=== PATIENT | male | born 1980 | race Caucasian/White ===

== ENCOUNTER 2019-03-19 03:32 | Observation (INO) | payer SELFPAY ==
[2019-03-19] MEDS ORDERED: PROCHLORPERAZINE INJ 5 MG/ML 2 ML VIAL IV ONE (03:42)
[2019-03-19] MEDS ORDERED: NS 0.9% 1000 ML** 2,000 ML IV ONE (03:42)
--- NOTE | 2019-03-19 03:44 | ED ---
Syncope/Near Syncope - HPI Summary HPI Summary: This patient is a 38 year old M brought to ED via EMS with a chief complaint of dizziness after waking up at 0200 this morning. Patient felt alright going to bed on 03/18/19 at midnight. Upon waking up, patient felt spinning in bed. He lay there hoping the dizziness would go away. He felt like he needed to defecate. Patient crawled on all fours to the bathroom as he felt like he was going to lose consciousness or fall, where he had diarrhea and vomiting. EMS gave 4 Zofran. The patient rates the pain 0/10 in severity. Symptoms aggravated by nothing. Symptoms alleviated by nothing. PMHx of HTN, anxiety. - History Of Current Complaint Chief Complaint: EDSyncope Time Seen by Provider: 03/19/19 03:35 Hx Obtained From: Patient, EMS Onset/Duration: Sudden Onset - 0200 this morning, Still Present Timing: Constant Context: Unwitnessed Activity At Onset: At Rest Associated Head Trauma: No Aggravating Factor(s): Nothing Alleviating Factor(s): Nothing Associated Signs And Symptoms: Diarrhea, Dizzy, Vomiting - Allergies/Home Medications Allergies/Adverse Reactions: Allergies Allergy/AdvReac Type Severity Reaction Status Date / Time No Known Allergies Allergy Verified 03/19/19 03:44 Home Medications: Home Medications Escitalopram * [Lexapro 10 mg (NF)] 10 mg PO DAILY 03/19/19 [History Confirmed 03/19/19] amLODIPine TAB* [Norvasc 5 mg TAB*] 1 tab PO DAILY 03/19/19 [History Confirmed 03/19/19] busPIRone TAB* [Buspar TAB *] 15 mg PO TID 03/19/19 [History Confirmed 03/19/19] PMH/Surg Hx/FS Hx/Imm Hx Cardiovascular History: Reports: Hx Hypertension Psychiatric History: Reports: Hx Anxiety Infectious Disease History: No Infectious Disease History: Denies: Traveled Outside the [place] in Last 30 Days - Family History Known Family History: Positive: Non-Contributory - Social History Alcohol Use: None Hx Substance Use: No Substance Use Type: Reports: None Hx Tobacco Use: No Smoking Status (MU): Never Smoked Tobacco Review of Systems Positive: Vomiting, Diarrhea, Nausea Neurological: Other - Dizziness, near-syncope All Other Systems Reviewed And Are Negative: Yes Physical Exam - Summary Physical Exam Summary: Appearance:Well-appearing, Well-nourished, lying in bed comfortable Skin:Warm, dry, no obvious rash Eyes:sclera anicteric, no conjunctival pallor ENT:mucous membranes moist Neck:supple Respiratory:No signs of respiratory distress Cardiovascular:Appears well perfused, pulses are nml Abdomen:soft, nontender, normal active bowel sounds present Musculoskeletal:Moving all 4 extremities without obvious discomfort Neurological:nystagmus on rightward gaze, otherwise nonfocal. No ataxia on finger to nose testing. Psychiatric:affect is normal, does not appear anxious or depressed Triage Information Reviewed: Yes Vital Signs On Initial Exam: Initial Vitals Temp Pulse Resp BP Pulse Ox 96.5 F 62 18 122/79 98 03/19/19 03:35 03/19/19 03:35 03/19/19 03:35 03/19/19 03:35 03/19/19 03:35 Vital Signs Reviewed: Yes Diagnostics - Vital Signs Vital Signs Temp Pulse Resp BP Pulse Ox 03/19/19 03:35 96.5 F 62 18 122/79 98 - Laboratory Result Diagrams: 03/19/19 07:52 03/19/19 07:52 Lab Statement: Any lab studies that have been ordered have been reviewed, and results considered in the medical decision making process. Re-Evaluation - Re-Evaluation First Eval Re-Evaluation Time: 06:05 Change: Unchanged Comment: Patient reports still feeling dizzy. Course/Dx Course Of Treatment: This patient is a 38 year old M brought to ED via EMS with a chief complaint of near-syncope after being woken up at 0200 this morning. In the ED course, patient received fluids, Compazine, and Antivert. This patient will be signed out from Dr. Noé Saucedo to Dr. Moses Benton at shift change at 0700 on 03/19/19 pending disposition. - Diagnoses Provider Diagnoses: Vertigo Discharge - Sign-Out/Discharge Documenting (check all that apply): Sign-Out Patient Signing out patient TO: Moses Benton Receiving patient FROM: Noé Saucedo Patient Received Moderate/Deep Sedation with Procedure: No - Discharge Plan Condition: Stable Disposition: ADMITTED TO [facility] - Billing Disposition and Condition Condition: STABLE Disposition: Admitted to [facility] - Attestation Statements Document Initiated by Scribe: Yes Documenting Scribe: Colby Pagan Provider For Whom Scribe is Documenting (Include Credential): Noé Sacuedo MD Scribe Attestation: I, Colby Pagan, scribed for Noé Saucedo MD on 03/20/19 at 0309. Scribe Documentation Reviewed: Yes Provider Attestation: The documentation as recorded by the scribe, Colby Pagan accurately reflects the service I personally performed and the decisions made by me, Noé Saucedo MD Status of Scribe Document: Viewed
[2019-03-19] MEDS ORDERED: Meclizine TAB* 12.5 MG PO ONE (06:07)
[2019-03-19 08:03] LABS: Urine Appearance Clear; Urine Bilirubin Negative (Negative); Urine Blood Negative (Negative); Urine Color Yellow; Urine Glucose Negative (Negative); Urine Ketones Negative (Negative); Urine Nitrite Negative (Negative); Urine Protein Negative (Negative); Urine Specific Gravity 1.019 (1.010-1.030); Urine Urobilinogen Negative (Negative)
[2019-03-19 08:06] LABS: ABS Eosinophils 0.1 10^3/ul (0-0.6); ABS Lymphocytes 1.5 10^3/ul (1.0-4.8); ABS Monocytes 0.5 10^3/ul (0-0.8); ABS Neutrophils 7.6 10^3/ul (1.5-7.7); Eosinophil % 0.6 %; Hematocrit 36 % (42-52); Hemoglobin 12.1 g/dL (14.0-18.0); Lymphocyte % 15.8 %; Mean Corpuscular HGB Conc 34 g/dL (31-36); Mean Corpuscular Hemoglobin 31 pg (27-31); Mean Corpuscular Volume 90 fL (80-94); Mean Platelet Volume 8.1 fL (7.4-10.4); Platelet Count 184 10^3/uL (150-450); Red Blood Count 3.94 10^6 /uL (4.18-5.48); Red Cell Distribution Width 14 % (10.5-15); White Blood Count 9.6 10^3/uL (3.5-10.8)
[2019-03-19 08:24] LABS: Albumin 3.7 g/dL (3.2-5.2); Albumin/Globulin Ratio 1.9 (1-3); BUN/Creatinine Ratio 26.5 (8-20); Calcium 8.4 mg/dL (8.6-10.3); EGFR African American 156.3 (>60); EGFR Non-African American 129.2 (>60); Magnesium 1.8 mg/dL (1.9-2.7); Potassium 4.1 mmol/L (3.5-5.0); Total Bilirubin 0.3 mg/dL (0.2-1.0); Total Protein 5.7 g/dL (6.4-8.9)
[2019-03-19] MEDS ORDERED: Diazepam TAB(*) 5 MG PO ONE (08:34)
--- NOTE | 2019-03-19 08:37 | ED ---
Progress - Progress Note Progress Note: Patient is signed out from Dr. Saucedo at 0700 awaiting final disposition. All imaging reviewed by ED physician. - EKG/XRAY/CT Comments: [0825] Sinus bradycardia at 50 BPM, Q wave in lead III, no ST elevations Xray Comments: CXR: No radiographic evidence of acute cardiopulmonary disease. CT: Brain CT: Normal CT of the Brain Re-Evaluation - Re-Evaluation First Eval Re-Evaluation Time: 09:00 Change: Unchanged Comment: Patient reports still feeling dizzy and the room is spinning. Second Eval Re-Evaluation Time: 09:57 Change: Unchanged Comment: Patient is still dizzy Course/Dx - Course Course Of Treatment: This patient was signed out from Dr. Merino stating that the patient has vertigo. The patient was given Compazine and meclizine. He requested to be assessed the patient and likely discharge the patient home. I reassessed the patient however the symptoms have not improved. Therefore I ordered blood work for him which shows an slight anemia, chloride 113, glucose 119, calcium 8.4 magnesium 1.8 and total protein 5.8. Chest x-ray impression: No acute pathology. Head CT impression: No acute interconnected pathology. Patient was given Valium however the symptoms do not improve. Therefore, I discussed my physical exam and findings with Dr. Garibay from the hospitalist services who accepted the patient for admission. - Diagnoses Provider Diagnoses: Vertigo - Provider Notifications Discussed Care Of Patient With: Zuleika Cifuentes - hospitalist Time Discussed With Above Provider: 09:57 Instructed by Provider To: Admit As Inpatient Discharge - Sign-Out/Discharge Documenting (check all that apply): Patient Departure - admit Patient Received Moderate/Deep Sedation with Procedure: No - Discharge Plan Condition: Stable Disposition: ADMITTED TO [facility] - Billing Disposition and Condition Condition: STABLE Disposition: Admitted to [facility] - Attestation Statements Document Initiated by Mamiibe: Yes Documenting Scribe: Bernadine Jacobson Provider For Whom Katty is Documenting (Include Credential): Moses Benton MD Scribe Attestation: Bernadine Don scribed for Moses Benton MD on 03/19/19 at 1852. Scribe Documentation Reviewed: Yes Provider Attestation: The documentation as recorded by the Bernadine lindquist accurately reflects the service I personally performed and the decisions made by me, Moses Benton MD Status of Katty Document: Viewed
[2019-03-19 09:12] LABS: TSH (Thyroid Stimulating Horm) 1.86 mcIU/mL (0.34-5.60)
[2019-03-19] MEDS ORDERED: NS 0.9% 1000 ML** 1,000 ML IV ONE (12:19)
[2019-03-19] MEDS ORDERED: Ondansetron INJ* 2 MG/ML VIAL IV PRN (13:45)
[2019-03-19] MEDS ORDERED: Magnesium Sulfate 1 GM IV* 1 GM/100 ML BAG IV ONE (13:53)
[2019-03-19] MEDS ORDERED: Meclizine TAB* 12.5 MG PO PRN (13:53)
[2019-03-19] MEDS ORDERED: Diazepam TAB(*) 5 MG PO PRN (13:54)
[2019-03-19] MEDS ORDERED: Aspirin 81 mg CHEW TAB* 81 MG TAB.CHEW PO ONE (13:58)
[2019-03-19] MEDS: busPIRone TAB* 15 MG PO SCH ×2 (14:03→21:11)
[2019-03-19] MEDS: NS 0.9% 1000 ML** 1,000 ML IV SCH ×2 (14:10→23:44)
--- NOTE | 2019-03-19 16:26 | CONS ---
CONSULTATION REPORT: DATE OF CONSULT: 03/19/19 CURRENT LOCATION: ER, bed 15. PRIMARY CARE PROVIDER: He has no primary care provider. REASON FOR CONSULT: Dizziness. HISTORY OF PRESENT ILLNESS: Mr. Diallo is a very nice 38-year-old gentleman, who has a history of some hypertension, on medication; history of depression/ anxiety, recently switched from Zoloft to Lexapro several weeks ago with no problems at that time, presented today with acute onset of dizziness early this morning. He apparently was in his usual state of health. Last night, he went to bed around midnight. He states he woke up in the middle of the night and he felt like he was going to have diarrhea. He was also very dizzy. He crawled into the bathroom and had diarrhea. Subsequently, he felt very warm and diaphoretic and felt very dizzy. He states that the room was spinning, he did not know which direction. He also at times felt lightheaded, very diaphoretic and his heart rate was fast. He felt like he was going to pass out several times and finally he states he vomited a large amount. Interestingly, he also notes that he has had some recent dark red blood in his stools. He has had a history of ulcers in the past. The dark red blood has been ongoing for about 3 weeks and he has not sought help for that at this time. The dizziness did not improve and he finally decided to come to the ER. In the ER, he has had persistent dizziness despite the fact that he has received Valium, meclizine, and Compazine. Currently, he notes that the room feels it is spinning, although he is unclear which direction. He feels nauseated, but he does not feel like he is going to vomit at this time. He notes no ringing in his ears. He has had some bronchitis in the recent past, but no acute infections, no sinus infections, no ear infections or ringing in his ears. No vision changes, vision loss, focal numbness, tingling or weakness. Up until this morning, he had no problems with balance, walking, numbness, tingling, or weakness. He has been in his usual state of health otherwise. He had the similar episode in the past, was treated with an Axel. It is unclear if it helped in the past. He has otherwise had no episodes of vertigo in the past. I did the Axel maneuver on him several times and there was some improvement of his nystagmus to the right. He states that he was about 20% better, but he continued to feel very dizzy, nauseated, was unable to stand safely. Based on that, he is being admitted to the hospital for observation. PAST MEDICAL HISTORY: As noted above. MEDICATIONS: At home, he takes: 1. Lexapro 10 mg daily. 2. Amlodipine 5 mg daily. 3. Buspirone 15 mg p.o. t.i.d. He has been on these medications for some time with no side effects. ALLERGIES: No known drug allergies. FAMILY HISTORY: Significant for strokes. Recently lost his mom and dad. SOCIAL HISTORY: He denies tobacco, alcohol, or drug use now or in the past. He works as a supervising chef. REVIEW OF SYSTEMS: Review of systems in 14-organ systems as noted above, otherwise negative. PHYSICAL EXAM: Blood pressures have been stable 114/61 to 114/60 to 121/70, pulse has been in the 48 to 60 range, respiratory rate 10 to 20, O2 sats 95% to 96% on room air. In general, he is a well-nourished, well-developed gentleman, in no acute distress. He is sitting in his hospital [facility] with head at approximately 45 degrees. He is pleasant, although he is somewhat uncomfortable. HEENT: He is normocephalic, atraumatic. Sclerae are anicteric. Mucous membranes are moist. Oropharynx is clear. Nares are patent. Neck is supple. No thyromegaly. No carotid bruits. No meningismus. Chest: Clear to auscultation bilaterally. Cardiovascular is regular rate and rhythm without murmurs, gallops, or rubs. Abdomen: Obese, nontender. Extremities: No clubbing, cyanosis, or edema. His skin is warm and dry without lesions. On neurologic exam, he is awake, alert, and oriented x3. His speech is fluent. There is no dysarthria. Repetition is intact. Recall of recent and remote events is intact. Vocabulary is intact. His mood is dysthymic. Affect, mood congruent. Cranial Nerves: Pupils are equally round and reactive to light and accommodation. Extraocular muscles are intact in all lafleur without diplopia or ptosis. He does have right lateral gaze nystagmus sustained and no left gaze nystagmus. No rotatory nystagmus. No upward gaze nystagmus. His facial sensation is intact bilaterally. Face is symmetric. Hearing is intact bilaterally. Palate raises symmetrically. Tongue is midline. Motor exam is 5/ 5 throughout. No drift. Tone and bulk are both normal. Sensation is intact to light touch and pinprick throughout. No focal abnormalities. DTRs are 1+ and symmetric in the upper extremities, 2+ at the patella, absent at the ankles , equivocal Babinski's. [id number] and rapid alternating movements are intact without tremors, without dysdiadochokinesia or dysmetria. Gait: I did not test and he feels unsteady. DIAGNOSTIC STUDIES/LAB DATA: He had lab work done. His complete metabolic profile with a chloride of 113, glucose of 119, calcium of 8.4, magnesium of 1.8. Total protein of 5.7. TSH is 1.86. Hemoglobin of 12.1, hematocrit of 36 , RBC of 3.94, otherwise CBC with diff is normal. Urine is negative. He had a CT scan done that was normal. He had a chest x-ray done, which showed no acute cardiopulmonary disease. He had an electrocardiogram done, which showed some sinus bradycardia, less than 60. ASSESSMENT AND PLAN: Mr. Diallo is a 38-year-old gentleman with a history of hypertension, on medication with good control; history of depression and anxiety , previously on Zoloft, but switched to Lexapro about 3 weeks ago without any difficulties. He takes buspirone as well. He has been in his usual state of health when early this morning he woke up and he was acutely dizzy with the room spinning, had diarrhea x1 and also vomited x1. Currently, he feels very nauseated. He is having continued room spinning with nystagmus to the right. There are no recent ear infections or upper respiratory infections. He did have bronchitis several weeks ago with an uncomplicated course. No chest pains or palpitations. No focal numbness, tingling or weakness, facial droop, vision changes. He has otherwise been in his usual state of health. I did perform the Axel maneuver several times and he did have some improvement in his symptoms with reduced nystagmus and about 20% improvement of his dizziness. With that said, he remains very dizzy and unable to ambulate safely. The plan is to admit him and hydrate him. I would treat him only for severe symptoms. Try to avoid meclizine or benzodiazepines as this can prolong illness, but if he is acutely vomiting, I could treat with some benzodiazepine or Zofran. If he is no better in the morning, our plan will be to get an MRI of his brain to look for any evidence of secondary causes including demyelinating disease, although my suspicion given his presentation is extremely low. We will continue to monitor him overnight and make further assessments and recommendations in the morning. Thank you for the opportunity to participate in the care of this very interesting patient. [id number]/[facility] #: [id number] [facility]
--- NOTE | 2019-03-19 18:04 | HP ---
CC: Dr. LancasterGassaway, [place] * HISTORY AND PHYSICAL: DATE OF ADMISSION: 03/19/19 PROVIDER: Erika Boothe NP ATTENDING PHYSICIAN WHILE IN THE HOSPITAL: Dr. Elaine Styles * (dictated by Erika Boothe NP). CHIEF COMPLAINT: Dizziness. HISTORY OF PRESENT ILLNESS: Mr. Diallo is a 38-year-old male with a past medical history significant for hypertension, anxiety and depression, who presented to the emergency room with complaints of dizziness. The patient reports that he woke at approximately 2 a.m. with dizziness. He states that when he got up he felt off balance and was having a hard time focusing due to the dizziness. He reports that he went to bed at approximately 12 a.m. and at that time he felt fine. He denies any recent illnesses. Denies any head or nasal congestion. He does report some mild allergy symptoms. He denies any recent alcohol use. He does report that the dizziness is worse with movement and turning his head [id number]. He also reports that it is worse when his eyes are open. He reports that he had a tiny improvement of the dizziness after the Axel maneuver that was performed by Dr. López, but still remains significantly dizzy. He denies any recent fevers, chills, unintended weight loss. Denies any chest pain or edema, cough, hemoptysis or shortness of breath. He does report nausea and vomiting and an episode of diarrhea associated with the dizziness. He denies any abdominal pain, gross hematuria, dysuria, focal weakness, or sensory loss. He denies any visual complaints, arthralgias, myalgias, rashes, lesions, or open sores. Denies any psychosis or anxiety. While in the emergency room, the patient had routine lab work drawn. He had a CT of the head. He was seen by Neurology, Dr. López, who did the Axel maneuver , but the patient remains dizzy. Due to these symptoms, we were asked to see and evaluate the patient for admission. PAST MEDICAL HISTORY: Significant for hypertension, anxiety, and depression. PAST SURGICAL HISTORY: Right knee surgery. HOME MEDICATIONS: 1. BuSpar 15 mg p.o. t.i.d. 2. Norvasc 5 mg p.o. daily. 3. Lexapro 10 mg p.o. daily. ALLERGIES: No known drug allergies. FAMILY HISTORY: Mother with a history of hypertension and stroke in her 50s with residual weakness. Mother with diabetes. Father with diabetes. No reported history of cancer. SOCIAL HISTORY: The patient denies any tobacco, alcohol, or illicit drug use. He is . Surrogate decision maker in the event he is unable to make his own decisions is his sister, Lina. He is a full code. REVIEW OF SYSTEMS: An 11-point review of systems was completed. All pertinent positives were mentioned in the HPI, otherwise were negative. PHYSICAL EXAMINATION GENERAL: At this time, Mr. Diallo is a 38-year-old male. He is alert and oriented, resting on the stretcher in the emergency room. VITAL SIGNS: Blood pressure 111/73, heart rate 72, respirations 17, O2 saturation 98%, temperature was 96.5. HEENT: Head is atraumatic, normocephalic. Eyes: EOMs are intact. Sclerae anicteric and not pale. He does have nystagmus. Pupils are equal and reactive. Oral mucosa appeared to be moist. NECK: Supple. LUNGS: Clear to auscultation bilaterally. No wheezes, rales, or rhonchi. CARDIAC: S1, S2. Regular rate and rhythm. He is bradycardic. ABDOMEN: Soft and nontender. Bowel sounds are present x4. EXTREMITIES: He is able to move all 4 extremities with 5/5 strength. There is no clubbing or cyanosis. Pedal pulses are +2 bilaterally. NEUROLOGIC: He is awake, alert, oriented x3. He does have positive nystagmus centrally and with lateral movement of his eyes. Speech is clear. Thought process is intact. There are no gross focal deficits. SKIN: Intact. DIAGNOSTIC STUDIES/LAB DATA: WBCs are 9.6, RBCs 3.94, hemoglobin 12.1, hematocrit 36, platelet count 184. Sodium 142, potassium 4.1, chloride 113, carbon dioxide was 23, anion gap was 6, BUN was 18, creatinine 0.68, glucose was 119, lactic acid was 1.2, calcium 8.4, magnesium was 1.8. ASTs were 22, ALTs were 26, alkaline phosphatase was 44. Troponin was 0.00 and TSH was 1.86. Urine was within normal limits. He had CT of the brain, radiologist's impression: Normal CT of the brain. He had a chest x-ray, radiologist's impression: No evidence of cardiopulmonary disease. He had an electrocardiogram, which showed sinus bradycardia at a rate of 50. He does have T-wave inversions in V1. He has P-wave inversion in aVR and V1. ASSESSMENT AND PLAN: Mr. Diallo is a 38-year-old male, who presented to the emergency room with complaints of dizziness since 2 a.m. He will be admitted under observation for: 1. Dizziness. I suspect this is related to benign positional vertigo. The patient was seen by Dr. López López in the emergency room. The patient had an Axel maneuver in the emergency room by Neurology and had minimal improvement of his dizziness. The patient continues to have nystagmus. I will continue IV fluids as per Neurology's recommendations. He will be placed on the monitor. I will get neuro checks every 4 hours. I will give him aspirin 324 mg. I will get a lipid profile and A1c in the a.m. and repeat BMP. I will also order meclizine and Valium as needed for severe dizziness. Neurology has recommended that if the patient's symptoms do not improve by tomorrow morning, to obtain MRI of the brain. He will be monitored on telemetry overnight. Should the MRI of the brain show any abnormality or infarct, we will complete a cerebrovascular accident workup with a CTA of the head and neck and a transthoracic echocardiogram with bubble study. At this time, his symptoms appeared to be clearly related to benign positional vertigo. 2. Hypertension. The patient has a history of hypertension. I am going to hold his amlodipine at this time as the patient's blood pressure systolically is in the one teens. We will resume this when able. 3. Anxiety and depression. I will continue his BuSpar and Lexapro as previously prescribed. 4. FEN: He can have a regular diet. 5. Code status: He is a full code. 6. DVT prophylaxis: I will place him on SCDs, as on DVT risk stratification he scores a 1. TIME SPENT: Time spent on this admission was approximately 60 minutes, greater than half that time was spent at the bedside reviewing events leading thus far to his hospitalization, performing physical exam, and reviewing my plan of care. I have discussed this with my attending, Dr. Elaine Styles; she is in agreement with my plan. ERIKA BOOTHE, LIGHT TRUCK DRIVER [id number]/[facility] #: [id number] [facility] HOSPITALJose
[2019-03-20 06:56] LABS: ABS Eosinophils 0.1 10^3/ul (0-0.6); ABS Lymphocytes 2.7 10^3/ul (1.0-4.8); ABS Monocytes 0.5 10^3/ul (0-0.8); ABS Neutrophils 4.3 10^3/ul (1.5-7.7); Eosinophil % 1.9 %; Hematocrit 36 % (42-52); Hemoglobin 12.2 g/dL (14.0-18.0); Lymphocyte % 34.8 %; Mean Corpuscular HGB Conc 34 g/dL (31-36); Mean Corpuscular Hemoglobin 31 pg (27-31); Mean Corpuscular Volume 92 fL (80-94); Mean Platelet Volume 7.8 fL (7.4-10.4); Nucleated Red Blood Cells % 0.1; Platelet Count 203 10^3/uL (150-450); Red Blood Count 3.92 10^6 /uL (4.18-5.48); Red Cell Distribution Width 14 % (10.5-15); White Blood Count 7.7 10^3/uL (3.5-10.8)
[2019-03-20 07:14] LABS: BUN/Creatinine Ratio 11.8 (8-20); Calcium 8.3 mg/dL (8.6-10.3); EGFR African American 156.3 (>60); EGFR Non-African American 129.2 (>60); HDL Cholesterol 41.5 mg/dL; Potassium 3.9 mmol/L (3.5-5.0)
[2019-03-20] MEDS: Escitalopram * 10 MG TAB PO SCH (07:58)
[2019-03-20] MEDS: busPIRone TAB* 15 MG PO SCH ×3 (07:58→20:53)
[2019-03-20] MEDS: NS 0.9% 1000 ML** 1,000 ML IV SCH (07:58)
--- NOTE | 2019-03-20 08:37 | PN ---
Subjective Date of Service: 03/20/19 Length of Stay: 1 Days Interval History: Pt examined today at the bedside. He states he is feeling better today. He still has some dizziness when he changes positions but states that it is improved since being admitted. He states he is not feeling nauseated. He is eating today. Review of Systems: Denied CP, SOB, or palpitations. Objective Active Medications: Buspirone HCl (Buspar Tab *) 15 mg PO TID [facility] Last Admin: 03/20/19 07:58 Dose: 15 mg Diazepam (Valium Tab(*)) 5 mg PO Q8H PRN PRN Reason: severe dizziness Escitalopram Oxalate (Lexapro *) 10 mg PO DAILY [facility] Last Admin: 03/20/19 07:58 Dose: 10 mg Sodium Chloride (Ns 0.9% 1000 Ml) 1,000 mls @ 125 mls/hr IV PER RATE [facility] Last Admin: 03/20/19 07:58 Dose: 125 mls/hr Meclizine HCl (Antivert Tab*) 25 mg PO Q8HR PRN PRN Reason: DIZZINESS Ondansetron HCl (Zofran Inj*) 4 mg IV Q6H PRN PRN Reason: NAUSEA/VOMITING Vital Signs 03/19/19 03/19/19 03/19/19 08:41 08:43 09:00 Temperature Pulse Rate 44 49 Respiratory 18 15 14 Rate Blood Pressure 98/52 (mmHg) O2 Sat by Pulse 95 96 Oximetry 03/19/19 03/19/19 03/19/19 09:13 09:43 10:00 Temperature Pulse Rate 48 51 48 Respiratory 16 15 13 Rate Blood Pressure 89/47 97/50 (mmHg) O2 Sat by Pulse 98 95 96 Oximetry 03/19/19 03/19/19 03/19/19 10:13 10:43 11:00 Temperature Pulse Rate 52 49 51 Respiratory 14 16 16 Rate Blood Pressure 91/49 95/40 (mmHg) O2 Sat by Pulse 97 95 96 Oximetry 03/19/19 03/19/19 03/19/19 11:13 11:43 12:00 Temperature Pulse Rate 49 59 49 Respiratory 16 10 20 Rate Blood Pressure 114/61 114/60 (mmHg) O2 Sat by Pulse 96 95 95 Oximetry 03/19/19 03/19/19 03/19/19 12:16 12:43 13:00 Temperature Pulse Rate 50 58 44 Respiratory 19 17 16 Rate Blood Pressure 121/71 111/73 (mmHg) O2 Sat by Pulse 96 98 96 Oximetry 03/19/19 03/19/19 03/19/19 13:13 13:43 14:00 Temperature Pulse Rate 46 56 43 Respiratory 15 16 18 Rate Blood Pressure 96/49 110/71 (mmHg) O2 Sat by Pulse 96 98 96 Oximetry 03/19/19 03/19/19 03/19/19 14:13 14:43 15:00 Temperature Pulse Rate 63 58 56 Respiratory 17 14 17 Rate Blood Pressure 119/70 130/62 (mmHg) O2 Sat by Pulse 97 96 95 Oximetry 03/19/19 03/19/19 03/19/19 15:24 15:55 15:59 Temperature 97.0 F 97.3 F Pulse Rate 61 51 Respiratory 17 20 20 Rate Blood Pressure 130/62 127/61 (mmHg) O2 Sat by Pulse 94 98 Oximetry 03/19/19 03/20/19 03/20/19 23:55 05:35 08:18 Temperature 97.8 F 97.9 F 98.9 F Pulse Rate 57 52 56 Respiratory 18 16 19 Rate Blood Pressure 123/62 109/60 123/63 (mmHg) O2 Sat by Pulse 98 97 98 Oximetry Intake and Output Last 24 Hours 03/18/19 03/19/19 03/20/19 03/21/19 06:59 06:59 06:59 06:59 Intake Total 1100 997 Output Total 1100 Balance 0 997 Weight 180 lb 250 lb Intake: IV Fluids 1100 997 Oral 0 Output: Urine 1100 Other: Estimated Void Medium # Bowel Movements 0 # Voids 1 Oxygen Devices in Use Now: None Neurology Exam: General: Well nourished, well developed, and in no acute distress HEENT: Normocephelic/atraumatic, sclera anicteric, mucous membranes moist Neck: Supple Chest: Clear to auscultation bilaterally Cardiovascular: Regular rate and rhythm without murmurs, rubs, gallops Abdomen: Soft, non-tender/non-distended Extremities: No clubbing, cyanosis, or edema Neurological Findings: Awake, alert, and oriented to person, place, and time. Speech: fluent without dysarthria, repetition intact Cranial Nerve: PERRL, EOM intact, VFF, nystagmus noted to the right , face symmetric bilaterally, facial sensation intact, hearing intact to finger rub bilaterally, palate elevates symmetrically, tongue midline, SCM and Trapezius 5/ 5. Motor: 5/5 throughout, proximal and distal extremities x4 tone/bulk normal Sensation: intact to LT bilaterally upper and lower extremities Deep Tendon Reflex: 2+ symmetric in the lower extremities, Babinski - down going Finger to nose, rapid alternating movements intact without tremor, no dysdiadochokinesia Gait: wide based gait, slightly unsteady, Result Diagrams: 03/20/19 06:45 03/20/19 06:45 Assessment/Plan 38 y/o male patient presenting to [facility] with complaints of dizziness and ataxia, Dizziness I suspect this is BPPV he is improving. He has nystagmus noted on right gaze. Pt states that he is dizzy today when changing positions. Would continue PRN antivert and valium He is improving would continue to monitor at this point If he has continued improvement would discharge home HTN Continue home medications Anxiety and depression Continue home medications After re-eval patient still dizzy with ambulation and ataxic at times, will check MRI if MRI negative can d/c home. If positive will bee further workup
--- NOTE | 2019-03-20 17:28 | PN ---
Subjective Date of Service: 03/20/19 Interval History: Patient feeling dizziness with change of positions still. He has been resting most of the day so feels improved overall but admits that is because he has limited his movement. He walked to bathroom and reports feeling dizzy and unsteady during ambulation. He mostly feels lightheaded but sometimes feels like his head is "fuzzy." His nausea has decreased. He mentions nasal congestion x 3 days. He denies fever/chills, abd pain, vomiting, diarrhea, chest pain, difficulty breathing, cough. Patient mentions one time blood in stool 10 days ago. Hematochezia has not occurred since then. Discussed following this with PCP outpatient. Objective Active Medications: Buspirone HCl (Buspar Tab *) 15 mg PO TID [facility] BEDS AT [facility] Last Admin: 03/20/19 14:05 Dose: 15 mg Diazepam (Valium Tab(*)) 5 mg PO Q8H PRN PRN Reason: severe dizziness Escitalopram Oxalate (Lexapro *) 10 mg PO DAILY [facility]S [facility]CLUDE 234 BEDS AT THE [facility] Last Admin: 03/20/19 07:58 Dose: 10 mg Meclizine HCl (Antivert Tab*) 25 mg PO Q8HR PRN PRN Reason: DIZZINESS Ondansetron HCl (Zofran Inj*) 4 mg IV Q6H PRN PRN Reason: NAUSEA/VOMITING Vital Signs - 8 hr 03/20/19 12:35 Temperature 97.8 F Pulse Rate 61 Respiratory 21 Rate Blood Pressure 127/70 (mmHg) O2 Sat by Pulse 99 Oximetry Oxygen Devices in Use Now: None Appearance: White, white male, laying comfortably in hospital bed, appearing in NAD Eyes: No Scleral Icterus, PERRLA, - - Minimal nystagmus with right tracking Ears/Nose/Mouth/Throat: Mucous Membranes Moist Neck: NL Appearance and Movements; NL JVP Respiratory: Symmetrical Chest Expansion and Respiratory Effort, Clear to Auscultation Cardiovascular: NL Sounds; No Murmurs; No JVD, RRR Abdominal: NL Sounds; No Tenderness; No Distention Skin: No Rash or Ulcers Neurological: Alert and Oriented x 3, NL Sensation, NL Muscle Strength and Tone Result Diagrams: 03/20/19 06:45 03/20/19 06:45 Assess/Plan/Problems-Billing 38 yo white male with PMHx anxiety/depression and HTN presents with dizziness, nausea, and vomiting. - Patient Problems (1) Dizziness Current Visit: Yes Status: Acute Code(s): R42 - DIZZINESS AND GIDDINESS SNOMED Code(s): 984361039 Comment: -dizziness associated with nausea and vomiting, mostly with positional changes -symptoms overall unchanged today, though patient has not received meclizine since single dose in ED -as patient is unchanged, Dr. López with neurology recommenda brain MRI w/o contrast to r/o CVA; pending - continue prn meclizine and zofran (2) Hypertension Current Visit: Yes Status: Acute Code(s): I10 - ESSENTIAL (PRIMARY) HYPERTENSION SNOMED Code(s): 30238037 Comment: -holding home amlodipine as patient has been normotensive without -hypotensive overnight to systolic 90s and NS was started, now normotensive and will d/c fluids (3) Anxiety and depression Current Visit: Yes Status: Acute Code(s): F41.9 - ANXIETY DISORDER, UNSPECIFIED; F32.9 - MAJOR DEPRESSIVE DISORDER, SINGLE EPISODE, UNSPECIFIED SNOMED Code(s): 210677679 Comment: -continue lexapro and buspar (4) DVT prophylaxis Current Visit: Yes Status: Acute Code(s): Z29.9 - ENCOUNTER FOR PROPHYLACTIC MEASURES, UNSPECIFIED SNOMED Code(s): 612877428 Comment: -SCDs (5) Full code status Current Visit: Yes Status: Acute Code(s): Z78.9 - OTHER SPECIFIED HEALTH STATUS SNOMED Code(s): 686894680
--- NOTE | 2019-03-21 05:48 | PN ---
Progress Note - Progress Note Date of Service: 03/21/19 Note: Paged for heart rate in high 30's, mid 40's sustained - patient sleeping
[2019-03-21 07:00] LABS: Hematocrit 41 % (42-52); Hemoglobin 13.8 g/dL (14.0-18.0)
[2019-03-21] MEDS: Escitalopram * 10 MG TAB PO SCH (08:04)
[2019-03-21] MEDS: busPIRone TAB* 15 MG PO SCH ×2 (08:04→14:10)
[2019-03-21 11:33] VITALS: BP 113/59
--- NOTE | 2019-03-22 03:03 | DS ---
CC: Dr. Lancaster; Dr. López * DISCHARGE SUMMARY: DATE OF ADMISSION: 03/19/19 DATE OF DISCHARGE: 03/21/19 PROVIDER: CECILY Nicholson ATTENDING PHYSICIAN: Dr. Eric Bedoya * (dictated by CECILY Nicholson) PRIMARY CARE PROVIDER: Dr. Lancaster in the [place] area. CONSULTING NEUROLOGIST: Dr. López. PRIMARY DIAGNOSIS: Benign paroxysmal positional vertigo. SECONDARY DIAGNOSES: 1. Hypertension. 2. Depression. 3. Anxiety. STUDIES: Brain MRI on 03/19/19, no acute intracranial abnormality. Low-lying cerebellar tonsils. Brain CT on 03/19/19, normal CT of the brain. Chest x-ray on 03/19/19, no radiographic evidence of acute cardiopulmonary disease. PERTINENT LAB DATA: White blood cell count 9.6 at admission. DISCHARGE MEDICATIONS: 1. Meclizine 25 mg p.o. q.8 hours p.r.n. dizziness. 2. Zofran 4 mg p.o. q.6 hours p.r.n. nausea or vomiting. Continued home medications: 1. Lexapro 10 mg p.o. daily. 2. Amlodipine 5 mg p.o. daily. 3. BuSpar 50 mg p.o. t.i.d. HISTORY OF PRESENT ILLNESS/HOSPITAL COURSE: Stevan Diallo is a 38-year-old male with past medical history of hypertension and depression/anxiety, who presented on 03/19/19 due to dizziness, nausea, and vomiting. Please history and physical report by Erika Boothe NP, for further details. During his hospital stay his nausea significantly improved. His dizziness which was a feeling of room spinning did continue to occur, but was beginning to occur less frequently during his stay. A CVA was ruled out with brain MRI. He was seen by Neurology who determined that this was likely BPPV and recommended medication which was prescribed as written above. On the date of discharge, the patient does continue to feel dizziness when changing positions and at times when walking to go up to bathroom, as well as when watching [employer] TV and when watching hockey. The frequency of dizziness is improving and his nausea has overall improved. He has not vomited during his hospital stay. The patient denies chest pain, difficulty breathing, abdominal pain, diarrhea, numbness, or weakness. The patient's telemetry was normal throughout his hospital stay except for 1 episode of bradycardia to the 40s while the patient was asleep overnight at 3 a.m. During his hospital stay his amlodipine was continued and his BuSpar and Lexapro were continued. REVIEW OF SYSTEMS: An 11-point review of systems was completed and all pertinent positives and negatives are above in the HPI. All other systems negative. PHYSICAL EXAMINATION: General: A white middle-aged male lying in hospital bed , appearing in no acute distress, and appearing comfortable. Head normocephalic and atraumatic. Eyes: PERRLA, sclerae anicteric, EOMI. ENT: Mucous membranes are moist. Neck: Supple without JVD. Cardiac: Regular rate and rhythm without murmurs, rubs, or gallops. Lungs: Clear to auscultation bilaterally. Abdomen: Abdomen is soft, nontender, and nondistended. Extremities: No clubbing, edema, or cyanosis. Neuro: No focal deficits. Cranial nerves II through XII are grossly intact. The patient is alert and oriented x3. Strength 5/5 in all extremities. Skin: Skin is warm, dry, and intact. DISCHARGE PLAN: DIET: Regular diet. ACTIVITY: The patient may return to normal activity as tolerated. The patient was provided with a work excuse for his hospitalization up through 03/24/19 as the patient is on the computer frequently for work and was experiencing symptoms when he was watching TV and was worrisome that this would impede his improvement. The patient was advised to consider a vestibular physical therapist and was advised to call [phone] to make an appointment with vestibular physical therapist with [facility]. The patient was advised to take p.r.n. meclizine and Zofran as needed. He does not need to follow up with Dr. López. He is advised to follow up with Dr. Lancaster earlier this week within 7 days or earlier if needed for further work excuse or if symptoms do not continue to improve. The patient was advised he will return to the emergency department if he is experiencing unilateral weakness or numbness or new changes in vision, or if vomiting to the extent that he cannot keep down liquids. For his hypertension, he is to continue his previous home medications. For his depression and anxiety, he is to continue his previous home medications. CONDITION ON DISCHARGE: Stable. DISPOSITION: Home. TIME SPENT: Approximately 35 minutes was spent on this discharge, approximately half that time was spent at the bedside. CECILY NICHOLSON [id number]/CPS #: [id number] MTDJose
== END 2019-03-21 14:59 | disposition home or self-care (01) ==
LOC: ED 03:32 → MEDTELE 13:45
PROVIDERS: ADMIT Hospitalist; ATTEND Internal Medicine
DX: H81.10 Benign paroxysmal vertigo, unspecified ear (principal); I10 Essential (primary) hypertension; F32.9 Major depressive disorder, single episode, unspecified; F41.9 Anxiety disorder, unspecified; R19.7 Diarrhea, unspecified; R11.2 Nausea with vomiting, unspecified
CPT/HCPCS: 36415; 70450; 70551; 71046; 80048; 80053; 80061; 81003; 83036; 83605; 83735; 84443; 84484; 85014; 85018; 85025; 93005; 96365; 96366; 96367; 99285; A9270-GY; G0378; J0780; J3475